=== PATIENT | female | born 1985 | race Two or more races ===

== ENCOUNTER 2018-06-16 05:49 | Emergency (ER) | payer OTHER ==
[~2018-06-16] VITALS: Ht 165.1 cm; Wt 58.1 kg
[~2018-06-16 05:49] MED LIST: CLARITIN10 MG; FOLIC ACID1 MG
== END 2018-06-16 12:10 | disposition home or self-care (01) ==
LOC: ER 05:49
DX: J09.X2 Influenza due to identified novel influenza A virus with other respiratory manifestations (principal)

== ENCOUNTER 2019-05-16 18:22 | Emergency (ER) | payer OTHER ==
[~2019-05-16] VITALS: Ht 160 cm; Wt 61.7 kg
== END 2019-05-16 22:04 | disposition home or self-care (01) ==
LOC: ER 18:22
DX: J06.9 Acute upper respiratory infection, unspecified (principal); B96.0 Mycoplasma pneumoniae [M. pneumoniae] as the cause of diseases classified elsewhere

== ENCOUNTER 2019-07-07 09:21 | Emergency (ER) | payer OTHER ==
[~2019-07-07] VITALS: Ht 160 cm; Wt 61.2 kg
== END 2019-07-07 10:54 ==
LOC: ER 09:21
DX: J03.80 Acute tonsillitis due to other specified organisms (principal)

== ENCOUNTER 2020-08-07 09:40 | Emergency (ER) | payer OTHER ==
[~2020-08-07] VITALS: Ht 160 cm; Wt 62.6 kg
[2020-08-07] MEDS ORDERED: AUGMENTIN600 MG/5 M (10:00)
[2020-08-07] MEDS ORDERED: CIPRO500 MG PO (10:48)
[2020-08-07] MEDS ORDERED: INTESTINEX680 M1 PO (10:48)
[2020-08-07] MEDS ORDERED: DICLOFENAC POTA50 MG PO (10:48)
== END 2020-08-07 11:13 | disposition home or self-care (01) ==
LOC: ER 09:40
DX: H60.01 Abscess of right external ear (principal)

== ENCOUNTER 2021-09-03 00:32 | Emergency (ER) | payer OTHER ==
[~2021-09-03] VITALS: Ht 160 cm; Wt 62.6 kg
[~2021-09-03 00:32] MED LIST changes: +AUGMENTIN600 MG/5 M; +CIPRO500 MG PO; +DICLOFENAC POTA50 MG PO; +INTESTINEX680 M1 PO; +MUCINEX DM ER1 EAC1 PO; +ZYRTEC10 MG PO
[2021-09-03] MEDS ORDERED: KETO10TA2 PO (02:30)
[2021-09-03] MEDS ORDERED: AMOX-CLAV 875-1 EACH PO (02:30)
== END 2021-09-03 02:34 ==
LOC: ER 00:32
DX: H61.20 Impacted cerumen, unspecified ear (principal); H60.90 Unspecified otitis externa, unspecified ear; H92.09 Otalgia, unspecified ear

== ENCOUNTER 2022-06-07 18:24 | Emergency (ER) | payer OTHER ==
[~2022-06-07] VITALS: Ht 160 cm; Wt 62.6 kg
[~2022-06-07 18:24] MED LIST changes: +AMOX-CLAV 875-1 EACH PO; +KETO10TA2 PO
[2022-06-07] MEDS ORDERED: DICLOFENAC SODI75 MG PO (19:57)
[2022-06-07] MEDS ORDERED: ANALPRAM HC 2.530 GM RECTAL (19:57)
== END 2022-06-07 20:07 | disposition home or self-care (01) ==
LOC: ER 18:24
DX: K64.9 Unspecified hemorrhoids (principal)

== ENCOUNTER 2022-08-26 03:18 | Emergency (ER) | payer OTHER ==
[~2022-08-26] VITALS: Ht 152.4 cm; Wt 63.5 kg
[~2022-08-26 03:18] MED LIST changes: +ANALPRAM HC 2.530 GM RECTAL; +DICLOFENAC SODI75 MG PO
[2022-08-26] MEDS ORDERED: DOLOGEN 325-11 EACH PO (04:56)
[2022-08-26] MEDS ORDERED: ZYNCOF 20-400120 ML PO (04:56)
[2022-08-26] MEDS ORDERED: PHENAGIL TABLE1 EACH PO (04:56)
== END 2022-08-26 05:03 ==
LOC: ER 03:18
DX: U07.1 COVID-19 (principal)

== ENCOUNTER → 2022-11-18 | Emergency (ER) | payer OTHER ==
[~2022-11-18] VITALS: Ht 160 cm; Wt 62.6 kg
[~2022-11-18] MED LIST changes: +ALLER-TEC10 MG PO; +DOLOGEN 325-11 EACH PO; +MEDROLPACK PO; +PHENAGIL TABLE1 EACH PO; +ZYNCOF 20-400120 ML PO
== END | disposition home or self-care (01) ==
LOC: ER 13:28
DX: T78.49XA Other allergy, initial encounter (principal); X58.XXXA Exposure to other specified factors, initial encounter; Z88.9 Allergy status to unspecified drugs, medicaments and biological substances

== ENCOUNTER 2022-11-19 05:13 | Emergency (ER) | payer OTHER ==
[~2022-11-19] VITALS: Ht 160 cm; Wt 62.6 kg
[~2022-11-19 05:13] MED LIST changes: -ALLER-TEC10 MG PO; -MEDROLPACK PO
[2022-11-19] MEDS ORDERED: MEDROLPACK PO (09:15)
[2022-11-19] MEDS ORDERED: ALLER-TEC10 MG PO (09:15)
== END 2022-11-19 09:25 | disposition home or self-care (01) ==
LOC: ER 05:13
DX: T78.49XA Other allergy, initial encounter (principal); X58.XXXA Exposure to other specified factors, initial encounter

== ENCOUNTER 2023-09-06 07:53 | Emergency (ER) | payer OTHER ==
[~2023-09-06] VITALS: Ht 160 cm; Wt 62.6 kg
[~2023-09-06 07:53] MED LIST changes: +ALLER-TEC10 MG PO; +MEDROLPACK PO
[2023-09-06] MEDS ORDERED: FLONASE16 GM IH (11:35)
[2023-09-06] MEDS ORDERED: DUI500 PO (11:35)
== END 2023-09-06 11:47 | disposition home or self-care (01) ==
LOC: ER 07:53
DX: J32.0 Chronic maxillary sinusitis (principal)

== ENCOUNTER 2024-07-30 08:43 | Emergency (ER) | payer OTHER ==
[~2024-07-30] VITALS: Ht 160 cm; Wt 63.5 kg
[~2024-07-30 08:43] MED LIST changes: +DUI500 PO; +FLONASE16 GM IH
[2024-07-30] MEDS ORDERED: ORPHENADRINE CITRATE 30 MG/ML AMPUL IM ONE (10:15)
[2024-07-30] MEDS ORDERED: KETOROLAC TROMETHAMINE 60 MG VIAL IM ONE ×2 (10:15→11:21)
[2024-07-30] MEDS ORDERED: ORPHENADRINE CITRATE 30 MG/ML AMPUL ONE (11:21)
[2024-07-30] MEDS ORDERED: NORFLEX100MG PO (11:41)
[2024-07-30] MEDS ORDERED: KETO10TA2 PO (11:41)
== END 2024-07-30 11:51 | disposition home or self-care (01) ==
LOC: ER 08:46
DX: M54.9 Dorsalgia, unspecified (principal)